=== PATIENT | female | born 1975 | race Caucasian/White ===

== ENCOUNTER 2017-01-17 11:16 | Emergency (ER) | payer BC, MEDICAID ==
[~2017-01-17] VITALS: Ht 167.6 cm; Wt 67.1 kg
[2017-01-17 11:39] VITALS: BP 104/64
--- NOTE | 2017-01-17 13:23 | NUR ---
EMT AT BEDSIDE FOR EAR IRRIGATION
[2017-01-17] MEDS ORDERED: IPRATROPIUM NEB FS 0.5 MG/2.5 ML AMPUL.NEB NEB ONE (13:30)
[2017-01-17] MEDS ORDERED: IBUPROFEN 600 MG TABLET PO ONE ×2 (13:30→13:37)
[2017-01-17] MEDS ORDERED: ALBUTEROL FS 2.5 MG/3 ML VIAL.NEB NEB ONE (13:30)
[2017-01-17] MEDS ORDERED: predniSONE 20 MG TABLET PO ONE (13:30)
[2017-01-17] MEDS ORDERED: predniSONE 20 MG TABLET ONE (13:36)
[2017-01-17] MEDS ORDERED: IPRATROPIUM NEB FS 0.5 MG/2.5 ML AMPUL.NEB ONE (13:40)
[2017-01-17] MEDS ORDERED: ALBUTEROL FS 2.5 MG/3 ML VIAL.NEB ONE (13:40)
== END 2017-01-17 14:38 | disposition home or self-care (01) ==
LOC: ER 11:18
DX: J04.0 Acute laryngitis (principal); J98.01 Acute bronchospasm; H61.22 Impacted cerumen, left ear; H92.02 Otalgia, left ear; Z90.89 Acquired absence of other organs
CPT/HCPCS: 94640 ×2; 99284; A4606; A6403; J7512; Z7610

== ENCOUNTER 2017-09-12 14:08 | Emergency (ER) | payer MEDICAID ==
[~2017-09-12] VITALS: Ht 167.6 cm; Wt 63.5 kg
[2017-09-12] MEDS ORDERED: ACETAMINOPHEN ES 500 MG TABLET PO ONE (15:00)
[2017-09-12] MEDS ORDERED: IV NS 0.9% 1,000 ML BAG IV ONE (15:00)
[2017-09-12] MEDS ORDERED: ALBUTEROL FS 2.5 MG/3 ML VIAL.NEB NEB ONE (15:00)
[2017-09-12 15:11] LABS: HEMOGLOBIN 13.5 g/dL (11.5-14.8); LYMPHOCYTES # (AUTO) 0.9 /CMM (0.8-4.8)
[2017-09-12 15:13] LABS: BASOPHILS % (AUTO) 0.8 % (0.0-2.0); EOSINOPHILS % (AUTO) 0.7 % (0.0-6.0); HEMATOCRIT 40 % (33-45); LYMPHOCYTES % (AUTO) 30.7 % (20.0-44.0); MEAN CORPUSCULAR HEMOGLOBIN 27 PG (26.0-33.0); MEAN CORPUSCULAR HGB CONC 33 g/dl (31.0-36.0); MEAN CORPUSCULAR VOLUME 82 fL (82-100); MONOCYTES # (AUTO) 0.3 /CMM (0.1-1.30); MONOCYTES % (AUTO) 11.4 % (2.0-12.0); NEUTROPHILS # (AUTO) 1.8 /CMM (1.8-8.9); NEUTROPHILS % (AUTO) 56.4 % (43.0-81.0); PLATELET COUNT (AUTO) 159 /CMM (150-450); RDW COEFFICIENT OF VARIATION 11.9 (11.5-15.0); RED BLOOD CELL COUNT(AUTO) 4.94 MIL/uL (4.0-5.2)
[2017-09-12 15:20] LABS: CALCIUM, SERUM 8.4 mg/dL (8.5-10.1); CREATININE 0.5 mg/dL (0.6-1.3); POTASSIUM 3.8 mmol/L (3.5-5.1)
[2017-09-12] MEDS ORDERED: ACETAMINOPHEN ES 500 MG TABLET ONE (16:51)
[2017-09-12] MEDS ORDERED: ALBUTEROL FS 2.5 MG/3 ML VIAL.NEB ONE (17:20)
--- NOTE | 2017-09-12 18:01 | NUR ---
IV removed. Catheter intact and site benign. Pressure and 4x4 applied to site. No bleeding noted.
--- NOTE | 2017-09-12 18:01 | NUR ---
Patient discharged to home in stable condition. Written and verbal after care instructions given. Patient verbalizes understanding of instruction.
[2017-09-12 18:02] VITALS: BP 120/82
== END 2017-09-12 18:02 | disposition home or self-care (01) ==
LOC: ER 14:12
DX: J06.9 Acute upper respiratory infection, unspecified (principal); Z90.89 Acquired absence of other organs
CPT/HCPCS: 36415; 71010; 80048; 83605; 85025; 87040 ×2; 87804; 94640 ×2; 96360; 99285; A4606; J7030 ×2; Z7610; 87400

== ENCOUNTER 2020-02-29 02:35 | Emergency (ER) | payer MEDICAID ==
[~2020-02-29] VITALS: Ht 167.6 cm; Wt 63.5 kg
--- NOTE | 2020-02-29 02:40 | NUR ---
PT C/O R SIDED NECK PAIN RADIATING TO R SHOULDER PAIN, R ARM AND R HAND WITH NUMBNESS SINCE LAST NIGHT. PT [id number], VSS, RESPIRATIONS EVEN AND UNLABORED ON RA W/ NAD NOTED. PT CONNECTED TO THE MONITOR AND POX
--- NOTE | 2020-02-29 02:49 | NUR ---
Note undone in EDM - 02/29/20 at 0252 by EVICTOR PT [id number]. AMBULATIORY WITH STEADY GAIT. BIBSELDiony C/O R SHOPULDER PAIN RADIATING TO R ARM X1 DAY. TOOK IBUPROFEN 400MG. NO ACUTE DISTRESS NOTE VSS.
--- NOTE | 2020-02-29 02:52 | NUR ---
MD LUNA AT BEDSIDE FOR EVAL.
[2020-02-29] MEDS ORDERED: HYDROMORPHONE 1 MG/1 ML DISP.SYRIN ONE (02:59)
[2020-02-29] MEDS ORDERED: DEXAMETHASONE SOD PHOSPHATE 10 MG/ML VIAL ONE (02:59)
[2020-02-29] MEDS ORDERED: CARISOPRODOL 350 MG TABLET ONE (02:59)
[2020-02-29] MEDS ORDERED: DEXAMETHASONE SOD PHOSPHATE 4 MG/ML VIAL IM ONE (03:00)
[2020-02-29] MEDS ORDERED: HYDROMORPHONE 1 MG/1 ML DISP.SYRIN IM ONE (03:00)
[2020-02-29] MEDS ORDERED: CARISOPRODOL 350 MG TABLET PO ONE (03:00)
--- NOTE | 2020-02-29 03:20 | NUR ---
Patient is resting comfortably in bed. Easily aroused. VSS.
--- NOTE | 2020-02-29 03:45 | NUR ---
Patient discharged to home in stable condition. Written and verbal after care instructions given. Patient verbalizes understanding of instruction and RX. Pt ambulated with steady gait. vss. Denies pain.
[2020-02-29 03:46] VITALS: BP 128/75
== END 2020-02-29 03:46 | disposition home or self-care (01) ==
LOC: ER 02:40
DX: M62.838 Other muscle spasm (principal); M54.12 Radiculopathy, cervical region; Z90.89 Acquired absence of other organs
CPT/HCPCS: 96372 ×2; 99284; J1100; J1170

== ENCOUNTER 2021-03-16 22:51 | Emergency (ER) | payer MEDICAID ==
[~2021-03-16] VITALS: Ht 167.6 cm; Wt 67.1 kg
[2021-03-16 23:05] VITALS: BP 107/67
== END 2021-03-16 23:46 | disposition home or self-care (01) ==
LOC: ER 22:51
DX: Z71.1 Person with feared health complaint in whom no diagnosis is made (principal); R06.02 Shortness of breath; Z90.89 Acquired absence of other organs
CPT/HCPCS: 71045-TC

== ENCOUNTER 2025-05-20 22:28 | Emergency (ER) | payer MEDICAID ==
[~2025-05-20] VITALS: Ht 167.6 cm; Wt 68.0 kg
[2025-05-21 01:49] LABS: APPEARANCE,URINE CLEAR (CLEAR); BLOOD, URINE NEGATIVE Ery/uL (NEGATIVE); LEUKOCYTE ESTERASE ,URINE NEGATIVE (NEGATIVE); NITRITE, URINE NEGATIVE (NEGATIVE); UGLUCOSE NEGATIVE (NEGATIVE)
[2025-05-21] MEDS: IV NS 0.9% 1,000 ML BAG IV ONE (02:06)
[2025-05-21 02:14] LABS: PLATELET COUNT (AUTO) 230 K/uL (150-450); RED BLOOD CELL COUNT(AUTO) 4.90 MIL/uL (4.0-5.2); RED CELL DISTRIBUTION WIDTH 14.6 % (11.5-15.0); WHITE BLOOD COUNT (AUTO) 8.4 K/uL (4.3-11.0)
[2025-05-21 02:28] LABS: ASPARTATE AMINOTRANSFERASE 13.0 U/L (15-37); CALCIUM, SERUM 9.0 mg/dL (8.5-10.1); CREATININE 0.5 mg/dL (0.6-1.3); SODIUM SERUM 139.0 mmol/L (136-145); TOTAL PROTEIN, SERUM 7.4 g/dL (6.4-8.2); UREA NITROGEN, BLOOD 16.0 mg/dL (7-18)
[2025-05-21] MEDS: KETOROLAC TROMETHAMINE 15 MG/ML VIAL IV ONE (02:59)
[2025-05-21 03:09] VITALS: BP 123/78; TEMP 98.8; O2SAT 99
== END 2025-05-21 03:10 | disposition home or self-care (01) ==
LOC: ER 22:32
DX: R10.9 Unspecified abdominal pain (principal); M54.9 Dorsalgia, unspecified; R30.0 Dysuria; Z90.49 Acquired absence of other specified parts of digestive tract
CPT/HCPCS: 99284; 74176; 96360; 85025; 80048; 83690; 80076; 81003; 36415; J7030